=== PATIENT | female | born 1955 ===

== ENCOUNTER 2017-08-22 11:09 | Emergency (ER) | payer OTHER ==
[2017-08-22 11:42] VITALS: BMI 27.3
[2017-08-22 12:04] VITALS: RESP 18; O2SAT 100
--- NOTE | 2017-08-22 13:13 | C.PDOC ---
History Of Present Illness 61 y/o female presents to the ED complaining of a toothache for 1 week. Patient saw her dentist yesterday, and was given clindamycin and ibuprofen, but now states the medications are not working. Additionally patient complains of left lower back pain radiating down the left leg. She denies any abdominal pain, incontinence of urine/stool, saddle anesthesia, or extremity weakness. Time Seen by Provider: 08/22/17 11:52 Chief Complaint (Nursing): Dental Pain History Per: Patient History/Exam Limitations: no limitations Onset/Duration Of Symptoms: Days Current Symptoms Are (Timing): Still Present Past Medical History Reviewed: Historical Data, Nursing Documentation, Vital Signs Vital Signs: Last Vital Signs Temp 98.3 F 08/22/17 11:42 Pulse 61 08/22/17 11:42 Resp 18 08/22/17 11:42 BP 134/69 08/22/17 11:42 Pulse Ox 100 08/22/17 13:39 Surgical History: Other Surgeries: Ectopic surgery Family History: States: Unknown Family Hx - Social History Hx Alcohol Use: No Hx Substance Use: No - Immunization History Hx Tetanus Toxoid Vaccination: No Hx Influenza Vaccination: No Hx Pneumococcal Vaccination: No Review Of Systems Except As Marked, All Systems Reviewed And Found Negative. ENT: Positive for: Other (Toothache) Musculoskeletal: Positive for: Back Pain Physical Exam - Physical Exam Appears: Non-toxic, No Acute Distress Skin: Normal Color, Warm, Dry Head: Atraumatic, Normacephalic Eye(s): bilateral: Normal Inspection, PERRL, EOMI Teeth: Other (Poor dentition; No signs of ludwigs angina, no trismus) Gingiva: Swelling (near left lower mandible), No Abscess Neck: Normal ROM Cardiovascular: Rhythm Regular, No Murmur Respiratory: Normal Breath Sounds, No Accessory Muscle Use Gastrointestinal/Abdominal: Soft, No Tenderness, No Distention Back: No Vertebral Tenderness, Paraspinal Tenderness (to left lateral lumbar region), Straight Leg Raising (+ straight leg raise at 45 degrees on the left), Other (No swelling or erythema to lumbar spine) Extremity: Bilateral: Atraumatic (with no bony point tenderness or gross swelling), Normal Color And Temperature, Normal ROM Pulses: Left Dorsalis Pedis: Normal, Right Dorsalis Pedis: Normal Neurological/Psych: Oriented x3, Normal Speech ED Course And Treatment O2 Sat by Pulse Oximetry: 100 (RA) Pulse Ox Interpretation: Normal Medical Decision Making Medical Decision Making: Impression: Toothache, Sciatica Initial Plan: --Xray of lumbar spine --Tramadol 50 mg PO X-ray preliminary reading is negative. Patient counseled regarding diagnoses. Patient is stable and will be discharged home with rx for Clindamycin, Tylenol/ codeine, and Lidoderm patch. Advised to follow up with dentist and primary doctor. Disposition Counseled Patient/Family Regarding: Studies Performed, Diagnosis, Need For Followup, Rx Given - Disposition Disposition: HOME/ ROUTINE Disposition Time: 13:27 Condition: STABLE Additional Instructions: follow up with your doctor in 2 days call to make an appointment take medications as prescribed return to ER if symptoms worsens or progress follow up with your dentist today Prescriptions: Acetaminophen/Codeine [Tylenol/Codeine 300 MG/30 MG] 1 tab PO Q6H PRN #12 tab PRN Reason: Pain, Severe (8-10) Clindamycin [Cleocin] 300 mg PO QID #40 cap Lidocaine 5% [Lidoderm] 1 ea TD DAILY #15 patch Instructions: Sciatica, Dental Pain (DC) Forms: Gen Discharge Inst Malian, Discera (Malian), Work Excuse Print Language: IRISH - Clinical Impression Clinical Impression: Dental caries, Sciatica - Scribe Statement The provider has reviewed the documentation as recorded by the Scribe (Kristina Bacon) Provider Attestation: All medical record entries made by the Scribe were at my direction and personally dictated by me. I have reviewed the chart and agree that the record accurately reflects my personal performance of the history, physical exam, medical decision making, and the department course for this patient. I have also personally directed, reviewed, and agree with the discharge instructions and disposition.
--- NOTE | 2017-08-22 13:29 | RAD ---
PROCEDURE: Radiographs of the Lumbar Spine. HISTORY: back pain COMPARISON: No prior. FINDINGS: BONES: Normal alignment. No listhesis. No fracture. DISC SPACES: Unremarkable. OTHER FINDINGS: None. IMPRESSION: Unremarkable radiographs of the lumbar spine.
[2017-08-22 13:41] VITALS: BP 132/70; PULSE 66; TEMP 98.4
== END 2017-08-22 13:41 | disposition home or self-care (01) ==
LOC: C.ER 11:09
DX: K02.9 Dental caries, unspecified (principal); M54.30 Sciatica, unspecified side